=== PATIENT | male | born 1985 | race Caucasian/White ===

== ENCOUNTER 2017-12-19 17:55 | Emergency (ER) | payer MEDICAID ==
[~2017-12-19] VITALS: Ht 172.7 cm; Wt 72.6 kg
[2017-12-19 17:59] VITALS: Ht 172.7 cm; Wt 72.6 kg
[2017-12-19 18:39] VITALS: BP 135/89
== END 2017-12-19 18:39 | disposition home or self-care (01) ==
LOC: ED 17:55
DX: S00.83XA Contusion of other part of head, initial encounter (principal); S20.212A Contusion of left front wall of thorax, initial encounter; S50.811A Abrasion of right forearm, initial encounter; I10 Essential (primary) hypertension; Y04.8XXA Assault by other bodily force, initial encounter; Y93.89 Activity, other specified; Y92.89 Other specified places as the place of occurrence of the external cause; Y99.8 Other external cause status